=== PATIENT | female | born 1965 | race African-American/Black ===

== ENCOUNTER 2016-07-18 23:09 | Emergency (ER) | payer MEDICAID ==
[~2016-07-18] VITALS: Ht 170.2 cm; Wt 84.0 kg
[~2016-07-18 23:09] MED LIST: AMLODIPINE; ARIP2TAB9; DIPHENHYDRAMINE; DOCUSATE; FURO20TA; HYDR12.518; HYDROCODONE; METOPROLOL; MIRT15TA; OMEPRAZOLE
[2016-07-19 00:55] LABS: CHLORIDE 110 mEq/L (98-107); INDEX HEMOLYSI 1 (1-3); INDEX ICTERIC 1 (1-4); INDEX LIPEMIC 1 (1-3)
[2016-07-19 00:57] LABS: BASOPHILS % 2.4 % (0.0-2.0); DIFFERENTIAL COMMENT 0; EOSINOPHILS % 5.6 % (0.0-5.0); HEMATOCRIT. 32.9 % (36.0-48.0); HEMOGLOBIN. 10.8 g/dL (12.0-16.0); LYMPHOCYTES % 47.2 % (20.0-50.0); MEAN CORPUSCULAR HEMOGLOBIN 33.8 pg (28.0-32.0); MEAN CORPUSCULAR HGB CONC 32.7 g/dL (31.0-37.0); MEAN CORPUSCULAR VOLUME 103.3 fL (81.0-99.0); MONOCYTES % 12.1 % (2.0-8.0); NEUTROPHILS % 32.7 % (40.0-76.0); PLATELET 157 x1000/uL (130-400); RED BLOOD CELL COUNT 3.19 mill/uL (4.2-5.4); RED CELL DISTRIBUTION WIDTH 15.9 % (11.6-14.6); WHITE BLOOD COUNT 5.6 x1000/uL (4.5-11.0)
[2016-07-19 01:09] LABS: ANION GAP 13; CALCIUM 8.1 mg/dL (8.5-10.1); CARBON DIOXIDE 25 mEq/L (21-32); UREA NITROGEN BLOOD 12 mg/dL (7-21); eGFR > 60 mL/min (>60)
[2016-07-19 01:14] LABS: ETHANOL BLOOD 334 mg/dL
[2016-07-19 03:29] VITALS: BP 138/92
== END 2016-07-19 05:44 | disposition home or self-care (01) ==
LOC: ER 23:10
DX: M79.7 Fibromyalgia (principal); M19.90 Unspecified osteoarthritis, unspecified site; F10.120 Alcohol abuse with intoxication, uncomplicated; I10 Essential (primary) hypertension; F17.200 Nicotine dependence, unspecified, uncomplicated; Z79.899 Other long term (current) drug therapy; Y90.8 Blood alcohol level of 240 mg/100 ml or more
CPT/HCPCS: 36415; 80048; 85025; 99284; G0482

== ENCOUNTER 2016-07-26 22:57 | Emergency (ER) | payer MEDICAID ==
[~2016-07-26] VITALS: Ht 167.6 cm; Wt 77.0 kg
[~2016-07-26 22:57] MED LIST changes: +FURO-152; -FURO20TA
[2016-07-27] MEDS ORDERED: KETOROLAC 30MG/ML VIAL IV ONE (01:45)
[2016-07-27 02:44] LABS: DIFFERENTIAL COMMENT 0; HEMATOCRIT. 32.3 % (36.0-48.0); HEMOGLOBIN. 10.6 g/dL (12.0-16.0); MEAN CORPUSCULAR HEMOGLOBIN 33.1 pg (28.0-32.0); MEAN CORPUSCULAR HGB CONC 32.9 g/dL (31.0-37.0); MEAN CORPUSCULAR VOLUME 100.5 fL (81.0-99.0); PLATELET 106 x1000/uL (130-400); RED BLOOD CELL COUNT 3.21 mill/uL (4.2-5.4); RED CELL DISTRIBUTION WIDTH 15.2 % (11.6-14.6); WHITE BLOOD COUNT 6.1 x1000/uL (4.5-11.0)
[2016-07-27] MEDS ORDERED: DICYCLOMINE HCL 20MG TABLET PO SCH (02:45)
[2016-07-27] MEDS ORDERED: ACETAMINOPHEN 325MG TABLET PO ONE (02:45)
[2016-07-27] MEDS ORDERED: FAMOTIDINE 20MG TABLET PO ONE (02:45)
[2016-07-27 02:49] LABS: CHLORIDE 104 mEq/L (98-107); INDEX HEMOLYSI 1 (1-3); INDEX ICTERIC 1 (1-4); INDEX LIPEMIC 1 (1-3)
[2016-07-27 02:58] LABS: ALANINE AMINOTRANSFERASE 59 IU/L (13-61); ALBUMIN 3.2 g/dL (3.4-5.0); ANION GAP 15; CALCIUM 8.4 mg/dL (8.5-10.1); CARBON DIOXIDE 27 mEq/L (21-32); LIPASE 234 IU/L (73-393); UREA NITROGEN BLOOD 12 mg/dL (7-21); eGFR > 60 mL/min (>60)
[2016-07-27 03:19] LABS: ATYPICAL LYMPHOCYTES 3
[2016-07-27 03:20] LABS: PLATELET ESTIMATE SLIGHTLY DECREASED
[2016-07-27 03:58] LABS: GLUCOSE URINE NEGATIVE (NEGATIVE); KETONES URINE NEGATIVE (NEGATIVE); LEUKOCYTE ESTERASE URINE NEGATIVE (NEGATIVE); NITRITE URINE NEGATIVE (NEGATIVE); OCCULT BLOOD URINE NEGATIVE (NEGATIVE); PROTEIN URINE NEGATIVE (NEGATIVE); SPECIFIC GRAVITY URINE 1.006 (1.005-1.030)
[2016-07-27 04:00] LABS: CLARITY URINE SL HAZY (CLEAR); COLOR URINE YELLOW (YELLOW)
[2016-07-27 04:10] LABS: SQUAMOUS EPITHELIAL CELL URINE 1+ /lpf (RARE/1+)
[2016-07-27 04:11] LABS: RBC URINE 0-2 /hpf (0-2)
[2016-07-27 04:12] LABS: BACTERIA URINE 1+
[2016-07-27 07:33] VITALS: BP 141/75
[2016-07-27] MEDS ORDERED: FAMOTIDINE 20MG/2ML VIAL IV SCH (09:00)
[2016-07-27 10:46] LABS: *AMPHETAMINES SCREEN URINE NEGATIVE (NEGATIVE); *BARBITURATES SCREEN URINE NEGATIVE (NEGATIVE); *BENZODIAZEPINES SCREEN URINE NEGATIVE (NEGATIVE); *COCAINE SCREEN URINE NEGATIVE (NEGATIVE); CANNABINOID URINE SCREEN NEGATIVE (NEGATIVE); ECSTASY MDMA SCREEN URINE NEGATIVE (NEGATIVE); METHADONE URINE SCREEN NEGATIVE (NEGATIVE); OPIATES URINE SCREEN NEGATIVE (NEGATIVE); PHENCYCLIDINE URINE SCREEN NEGATIVE (NEGATIVE)
== END 2016-07-27 08:03 | disposition home or self-care (01) ==
LOC: ER 23:08
DX: R10.9 Unspecified abdominal pain (principal); E87.6 Hypokalemia; I10 Essential (primary) hypertension; M19.90 Unspecified osteoarthritis, unspecified site; K76.0 Fatty (change of) liver, not elsewhere classified; D64.9 Anemia, unspecified; D69.6 Thrombocytopenia, unspecified; Z90.49 Acquired absence of other specified parts of digestive tract
CPT/HCPCS: 36415; 76705; 80053; 80305; 81001; 81025; 83690; 85007; 85027; 99285

== ENCOUNTER 2016-08-02 01:05 | Emergency (ER) | payer MEDICAID ==
[~2016-08-02] VITALS: Ht 162.6 cm; Wt 83.0 kg
[2016-08-02 06:14] LABS: BASOPHILS % 1.2 % (0.0-2.0); DIFFERENTIAL COMMENT 0; EOSINOPHILS % 2.9 % (0.0-5.0); HEMATOCRIT. 32.4 % (36.0-48.0); HEMOGLOBIN. 10.8 g/dL (12.0-16.0); LYMPHOCYTES % 52.2 % (20.0-50.0); MEAN CORPUSCULAR HEMOGLOBIN 33.6 pg (28.0-32.0); MEAN CORPUSCULAR HGB CONC 33.2 g/dL (31.0-37.0); MEAN CORPUSCULAR VOLUME 101.2 fL (81.0-99.0); MEAN PLATELET VOLUME 8.2 fl (7.4-10.4); MONOCYTES % 13.7 % (2.0-8.0); PLATELET 142 x1000/uL (130-400); RED CELL DISTRIBUTION WIDTH 15.2 % (11.6-14.6); WHITE BLOOD COUNT 5.7 x1000/uL (4.5-11.0)
[2016-08-02 06:17] LABS: CHLORIDE 108 mEq/L (98-107); INDEX HEMOLYSI 1 (1-3); INDEX ICTERIC 1 (1-4); INDEX LIPEMIC 1 (1-3)
[2016-08-02 06:26] LABS: ALANINE AMINOTRANSFERASE 62 IU/L (13-61); ALBUMIN 3.3 g/dL (3.4-5.0); ANION GAP 14; CALCIUM 8.2 mg/dL (8.5-10.1); CARBON DIOXIDE 25 mEq/L (21-32); LIPASE 231 IU/L (73-393); UREA NITROGEN BLOOD 9 mg/dL (7-21); eGFR > 60 mL/min (>60)
[2016-08-02 06:27] LABS: HCG SCREEN NEGATIVE
[2016-08-02 07:11] LABS: CLARITY URINE TURBID (CLEAR); COLOR URINE YELLOW (YELLOW); GLUCOSE URINE NEGATIVE (NEGATIVE); KETONES URINE NEGATIVE (NEGATIVE); LEUKOCYTE ESTERASE URINE NEGATIVE (NEGATIVE); NITRITE URINE NEGATIVE (NEGATIVE); OCCULT BLOOD URINE NEGATIVE (NEGATIVE); PH URINE 7.5 (4.5-8.0); PROTEIN URINE NEGATIVE (NEGATIVE); SPECIFIC GRAVITY URINE 1.007 (1.005-1.030); UROBILINOGEN URINE 0.2 E.U./dL (0.2-1.0)
[2016-08-02 07:39] VITALS: BP 138/74
[2016-08-02 07:42] LABS: SQUAMOUS EPITHELIAL CELL URINE 1+ /lpf (RARE/1+)
[2016-08-02 07:43] LABS: BACTERIA URINE 1+
[2016-08-02 07:44] LABS: RBC URINE NONE SEEN /hpf (0-2); WBC URINE 0-2 /hpf (0-2)
[2016-08-02] MEDS ORDERED: MAGNESIUM/ALUMINUM HYDROXIDE/SIMETHICONE 30ML UDC PO NR (08:15)
[2016-08-02] MEDS ORDERED: POTASSIUM CHLORIDE 20MEQ TABLET SR PO NR (08:15)
[2016-08-02] MEDS ORDERED: FAMOTIDINE 20MG TABLET PO NR (08:15)
== END 2016-08-02 08:37 | disposition home or self-care (01) ==
LOC: ER 01:22
DX: K29.20 Alcoholic gastritis without bleeding (principal); I10 Essential (primary) hypertension; F10.10 Alcohol abuse, uncomplicated; M19.90 Unspecified osteoarthritis, unspecified site; F17.210 Nicotine dependence, cigarettes, uncomplicated; Y90.9 Presence of alcohol in blood, level not specified
CPT/HCPCS: 36415; 80053; 81001; 83690; 84703; 85025; 99284

== ENCOUNTER 2016-08-03 21:19 | Emergency (ER) | payer MEDICAID ==
[~2016-08-03] VITALS: Ht 167.6 cm; Wt 81.0 kg
[2016-08-03] MEDS ORDERED: IBUPROFEN 600MG TABLET PO ONE (23:30)
[2016-08-04 00:04] VITALS: BP 128/66
== END 2016-08-04 00:16 | disposition home or self-care (01) ==
LOC: ER 21:20
DX: K08.89 Other specified disorders of teeth and supporting structures (principal); I10 Essential (primary) hypertension; F17.210 Nicotine dependence, cigarettes, uncomplicated; Z90.49 Acquired absence of other specified parts of digestive tract
CPT/HCPCS: 99283

== ENCOUNTER 2016-08-04 05:09 | Emergency (ER) | payer MEDICAID | END 2016-08-04 05:32 | disposition left against medical advice (07) | LOC: ER 05:10 | DX: R52 Pain, unspecified (principal); Z53.21 Procedure and treatment not carried out due to patient leaving prior to being seen by health care provider ==

== ENCOUNTER 2016-09-12 22:54 | Emergency (ER) | payer MEDICAID ==
[~2016-09-12] VITALS: Ht 165.1 cm; Wt 91.0 kg
[2016-09-13 01:48] LABS: CLARITY URINE CLEAR (CLEAR); COLOR URINE YELLOW (YELLOW); GLUCOSE URINE NEGATIVE (NEGATIVE); KETONES URINE NEGATIVE (NEGATIVE); LEUKOCYTE ESTERASE URINE NEGATIVE (NEGATIVE); NITRITE URINE NEGATIVE (NEGATIVE); OCCULT BLOOD URINE NEGATIVE (NEGATIVE); PH URINE 7.5 (4.5-8.0); PROTEIN URINE NEGATIVE (NEGATIVE); SPECIFIC GRAVITY URINE 1.014 (1.005-1.030); UROBILINOGEN URINE 0.2 E.U./dL (0.2-1.0)
[2016-09-13 01:50] LABS: BASOPHILS % 0.8 % (0.0-2.0); EOSINOPHILS % 2.4 % (0.0-5.0); HEMATOCRIT. 34.6 % (36.0-48.0); HEMOGLOBIN. 11.5 g/dL (12.0-16.0); MEAN CORPUSCULAR HEMOGLOBIN 33.1 pg (28.0-32.0); MEAN CORPUSCULAR HGB CONC 33.2 g/dL (31.0-37.0); MEAN CORPUSCULAR VOLUME 99.9 fL (81.0-99.0); MEAN PLATELET VOLUME 8.8 fl (7.4-10.4); MONOCYTES % 11.8 % (2.0-8.0); PLATELET 109 x1000/uL (130-400); RED BLOOD CELL COUNT 3.47 mill/uL (4.2-5.4); RED CELL DISTRIBUTION WIDTH 16.9 % (11.6-14.6); WHITE BLOOD COUNT 6.5 x1000/uL (4.5-11.0)
[2016-09-13 01:56] LABS: CHLORIDE 102 mEq/L (98-107); INDEX HEMOLYSI 1 (1-3); INDEX ICTERIC 1 (1-4); INDEX LIPEMIC 1 (1-3)
[2016-09-13 01:59] LABS: *AMPHETAMINES SCREEN URINE NEGATIVE (NEGATIVE); *BARBITURATES SCREEN URINE NEGATIVE (NEGATIVE); *BENZODIAZEPINES SCREEN URINE NEGATIVE (NEGATIVE); *COCAINE SCREEN URINE NEGATIVE (NEGATIVE); CANNABINOID URINE SCREEN NEGATIVE (NEGATIVE); ECSTASY MDMA SCREEN URINE NEGATIVE (NEGATIVE); METHADONE URINE SCREEN NEGATIVE (NEGATIVE); OPIATES URINE SCREEN NEGATIVE (NEGATIVE); PHENCYCLIDINE URINE SCREEN NEGATIVE (NEGATIVE)
[2016-09-13 02:05] LABS: ALANINE AMINOTRANSFERASE 48 IU/L (13-61); ALBUMIN 3.7 g/dL (3.4-5.0); ANION GAP 12; CALCIUM 8.6 mg/dL (8.5-10.1); CARBON DIOXIDE 29 mEq/L (21-32); ETHANOL BLOOD 209 mg/dL; UREA NITROGEN BLOOD 8 mg/dL (7-21); eGFR > 60 mL/min (>60)
[2016-09-13] MEDS ORDERED: POTASSIUM CHLORIDE 20MEQ TABLET SR PO ONE (06:45)
[2016-09-13 09:30] VITALS: BP 125/83
== END 2016-09-13 10:03 | disposition home or self-care (01) ==
LOC: ER 23:11
DX: F10.129 Alcohol abuse with intoxication, unspecified (principal); G89.29 Other chronic pain; R10.9 Unspecified abdominal pain; I10 Essential (primary) hypertension; Z90.49 Acquired absence of other specified parts of digestive tract
CPT/HCPCS: 36415; 80053; 80305; 81003; 85025; 99284; G0482; Z7610

== ENCOUNTER 2016-10-18 22:37 | Emergency (ER) | payer MEDICAID ==
[~2016-10-18] VITALS: Ht 167.6 cm; Wt 100.0 kg
[~2016-10-18 22:37] MED LIST changes: +ARIP2TAB3; -ARIP2TAB9
[2016-10-18 22:39] VITALS: BP 153/72
== END 2016-10-19 02:30 | disposition left against medical advice (07) ==
LOC: ER 22:39
DX: Z53.21 Procedure and treatment not carried out due to patient leaving prior to being seen by health care provider (principal)

== ENCOUNTER 2016-10-19 06:01 | Emergency (ER) | payer MEDICAID ==
[~2016-10-19] VITALS: Ht 167.6 cm; Wt 100.0 kg
[2016-10-19 06:56] LABS: CLARITY URINE CLOUDY (CLEAR); COLOR URINE YELLOW (YELLOW); GLUCOSE URINE NEGATIVE (NEGATIVE); KETONES URINE NEGATIVE (NEGATIVE); LEUKOCYTE ESTERASE URINE TRACE (NEGATIVE); NITRITE URINE POSITIVE (NEGATIVE); OCCULT BLOOD URINE NEGATIVE (NEGATIVE); PROTEIN URINE NEGATIVE (NEGATIVE); SPECIFIC GRAVITY URINE 1.011 (1.005-1.030)
[2016-10-19 08:30] VITALS: BP 136/80
== END 2016-10-19 09:38 | disposition home or self-care (01) ==
LOC: ER 06:45
DX: N39.0 Urinary tract infection, site not specified (principal); A63.0 Anogenital (venereal) warts; I10 Essential (primary) hypertension; M79.7 Fibromyalgia; Z79.899 Other long term (current) drug therapy
CPT/HCPCS: 81001; 99283

== ENCOUNTER 2016-10-28 23:40 | Emergency (ER) | payer MEDICAID ==
[~2016-10-28] VITALS: Ht 162.6 cm; Wt 68.0 kg
[2016-10-28 23:46] VITALS: BP 152/86
== END 2016-10-29 05:00 | disposition left against medical advice (07) ==
LOC: ER 23:44
DX: M79.606 Pain in leg, unspecified (principal); Z53.21 Procedure and treatment not carried out due to patient leaving prior to being seen by health care provider

== ENCOUNTER 2016-10-31 23:57 | Emergency (ER) | payer MEDICAID ==
[~2016-10-31] VITALS: Ht 175.3 cm; Wt 77.0 kg
[2016-11-01] MEDS ORDERED: IBUPROFEN 600MG TABLET PO ONE (07:30)
[2016-11-01 08:12] LABS: CLARITY URINE CLEAR (CLEAR); COLOR URINE YELLOW (YELLOW); GLUCOSE URINE NEGATIVE (NEGATIVE); KETONES URINE NEGATIVE (NEGATIVE); LEUKOCYTE ESTERASE URINE TRACE (NEGATIVE); NITRITE URINE NEGATIVE (NEGATIVE); OCCULT BLOOD URINE 1+ (NEGATIVE); PH URINE 7.5 (4.5-8.0); PROTEIN URINE NEGATIVE (NEGATIVE); SPECIFIC GRAVITY URINE 1.008 (1.005-1.030); UROBILINOGEN URINE 0.2 E.U./dL (0.2-1.0)
[2016-11-01 08:51] VITALS: BP 165/105
== END 2016-11-01 09:52 | disposition home or self-care (01) ==
LOC: ER 23:57
DX: M54.5 Low back pain (principal); R60.9 Edema, unspecified; J45.909 Unspecified asthma, uncomplicated; I10 Essential (primary) hypertension; F19.10 Other psychoactive substance abuse, uncomplicated; F17.200 Nicotine dependence, unspecified, uncomplicated; E11.9 Type 2 diabetes mellitus without complications; Z86.73 Personal history of transient ischemic attack (TIA), and cerebral infarction without residual deficits; Z90.49 Acquired absence of other specified parts of digestive tract
CPT/HCPCS: 81001; 93970; 99285

== ENCOUNTER 2016-11-04 00:06 | Emergency (ER) | payer MEDICAID ==
[~2016-11-04] VITALS: Ht 170.2 cm; Wt 68.0 kg
[2016-11-04 00:15] VITALS: BP 148/80
== END 2016-11-04 07:56 | disposition left against medical advice (07) ==
LOC: ER 00:27
DX: Z53.21 Procedure and treatment not carried out due to patient leaving prior to being seen by health care provider (principal)

== ENCOUNTER 2016-11-20 01:12 | Emergency (ER) | payer MEDICAID ==
[~2016-11-20] VITALS: Ht 167.6 cm; Wt 73.0 kg
[2016-11-20 05:55] VITALS: BP 126/69
== END 2016-11-20 06:46 | disposition home or self-care (01) ==
LOC: ER 01:12 → CANBEDREQ 05:37 → ER 06:46
DX: M54.5 Low back pain (principal); M79.604 Pain in right leg; M79.605 Pain in left leg; F17.200 Nicotine dependence, unspecified, uncomplicated; I10 Essential (primary) hypertension; M19.90 Unspecified osteoarthritis, unspecified site
CPT/HCPCS: 99283

== ENCOUNTER 2016-11-21 00:03 | Emergency (ER) | payer MEDICAID, OTHER ==
[~2016-11-21] VITALS: Ht 167.6 cm; Wt 73.5 kg
[2016-11-21 05:03] VITALS: BP 165/93
[2016-11-21] MEDS ORDERED: ACETAMINOPHEN 325MG TABLET PO ONE (06:30)
== END 2016-11-21 07:22 | disposition home or self-care (01) ==
LOC: ER 00:05
DX: M79.605 Pain in left leg (principal); M79.604 Pain in right leg; R10.9 Unspecified abdominal pain; M79.7 Fibromyalgia; I10 Essential (primary) hypertension; E11.9 Type 2 diabetes mellitus without complications; Z86.73 Personal history of transient ischemic attack (TIA), and cerebral infarction without residual deficits; Z90.49 Acquired absence of other specified parts of digestive tract
CPT/HCPCS: 99283; Z7610

== ENCOUNTER 2016-11-24 23:33 | Emergency (ER) | payer MEDICAID, OTHER ==
[~2016-11-24] VITALS: Ht 167.6 cm; Wt 73.0 kg
[2016-11-25] MEDS ORDERED: IBUPROFEN 800MG TABLET PO ONE (03:45)
[2016-11-25 04:31] VITALS: BP 135/85
== END 2016-11-25 04:51 | disposition home or self-care (01) ==
LOC: ER 11-25 03:42
DX: M54.5 Low back pain (principal); F31.9 Bipolar disorder, unspecified; I10 Essential (primary) hypertension; F17.200 Nicotine dependence, unspecified, uncomplicated; I25.2 Old myocardial infarction; Z90.49 Acquired absence of other specified parts of digestive tract
CPT/HCPCS: 99283

== ENCOUNTER 2016-11-29 22:33 | Emergency (ER) | payer OTHER ==
[~2016-11-29] VITALS: Ht 165.1 cm; Wt 73.0 kg
[2016-11-29 22:36] VITALS: BP 144/90
== END 2016-11-30 01:27 | disposition left against medical advice (07) ==
LOC: ER 22:33
DX: Z53.21 Procedure and treatment not carried out due to patient leaving prior to being seen by health care provider (principal)

== ENCOUNTER 2016-11-30 03:14 | Emergency (ER) | payer OTHER ==
[~2016-11-30] VITALS: Ht 165.1 cm; Wt 73.0 kg
[2016-11-30] MEDS ORDERED: KETOROLAC 60MG/2ML VIAL IM ONE (07:15)
[2016-11-30 07:31] VITALS: BP 106/64
== END 2016-11-30 11:09 | disposition left against medical advice (07) ==
LOC: ER 03:14
DX: M79.605 Pain in left leg (principal); M79.604 Pain in right leg; G89.29 Other chronic pain; R03.0 Elevated blood-pressure reading, without diagnosis of hypertension; Z79.899 Other long term (current) drug therapy; M54.9 Dorsalgia, unspecified
CPT/HCPCS: 96372; 99283; J1885

== ENCOUNTER 2016-12-10 23:41 | Emergency (ER) | payer OTHER ==
[~2016-12-10] VITALS: Ht 167.6 cm; Wt 86.0 kg
[2016-12-11 03:17] LABS: BASOPHILS % 0.9 % (0.0-2.0); EOSINOPHILS % 3.1 % (0.0-5.0); HEMATOCRIT. 30.6 % (36.0-48.0); LYMPHOCYTES % 38.5 % (20.0-50.0); MEAN CORPUSCULAR HEMOGLOBIN 33.4 pg (28.0-32.0); MONOCYTES % 11.9 % (2.0-8.0); NEUTROPHILS % 45.6 % (40.0-76.0); PLATELET 121 x1000/uL (130-400); RED CELL DISTRIBUTION WIDTH 16.9 % (11.6-14.6)
[2016-12-11 03:29] LABS: CARBON DIOXIDE 25 mEq/L (21-32); CHLORIDE 106 mEq/L (98-107); ETHANOL BLOOD 167 mg/dL
[2016-12-11] MEDS ORDERED: POTASSIUM CHLORIDE 20MEQ/PACKET PO ONE (04:00)
[2016-12-11] MEDS ORDERED: SODIUM CHLORIDE 0.9% 500 ML IV ONE (04:12)
[2016-12-11] MEDS ORDERED: POTASSIUM CHLORIDE 20MEQ/PACKET PO SCH (04:15)
[2016-12-11 04:48] LABS: CLARITY URINE TURBID (CLEAR); COLOR URINE YELLOW (YELLOW); GLUCOSE URINE NEGATIVE (NEGATIVE); KETONES URINE NEGATIVE (NEGATIVE); LEUKOCYTE ESTERASE URINE TRACE (NEGATIVE); NITRITE URINE NEGATIVE (NEGATIVE); OCCULT BLOOD URINE 3+ (NEGATIVE); PH URINE 7.5 (4.5-8.0); PROTEIN URINE NEGATIVE (NEGATIVE); SPECIFIC GRAVITY URINE 1.008 (1.005-1.030)
[2016-12-11 05:07] LABS: *AMPHETAMINES SCREEN URINE NEGATIVE (NEGATIVE); *BARBITURATES SCREEN URINE NEGATIVE (NEGATIVE); *BENZODIAZEPINES SCREEN URINE NEGATIVE (NEGATIVE); *COCAINE SCREEN URINE NEGATIVE (NEGATIVE); CANNABINOID URINE SCREEN NEGATIVE (NEGATIVE); METHADONE URINE SCREEN NEGATIVE (NEGATIVE); OPIATES URINE SCREEN NEGATIVE (NEGATIVE); PHENCYCLIDINE URINE SCREEN NEGATIVE (NEGATIVE)
[2016-12-11 08:29] VITALS: BP 161/87
== END 2016-12-11 11:37 | disposition home or self-care (01) ==
LOC: ER 23:41
DX: N39.0 Urinary tract infection, site not specified (principal); F10.129 Alcohol abuse with intoxication, unspecified; F31.9 Bipolar disorder, unspecified; I10 Essential (primary) hypertension; Y90.8 Blood alcohol level of 240 mg/100 ml or more
CPT/HCPCS: 36415; 80053; 80305; 81001; 83690; 83735; 85025; 96360; 96361; 99285; G0482; J7040; Z7610

== ENCOUNTER 2016-12-20 22:23 | Emergency (ER) | payer OTHER ==
[~2016-12-20] VITALS: Ht 167.6 cm; Wt 80.0 kg
[2016-12-21] MEDS ORDERED: KETOROLAC 60MG/2ML VIAL IM ONE (07:45)
[2016-12-21 08:59] VITALS: BP 130/60
== END 2016-12-21 09:07 | disposition home or self-care (01) ==
LOC: ER 22:23
DX: M54.9 Dorsalgia, unspecified (principal); M79.606 Pain in leg, unspecified; M19.90 Unspecified osteoarthritis, unspecified site; I10 Essential (primary) hypertension; M79.7 Fibromyalgia; F17.210 Nicotine dependence, cigarettes, uncomplicated; Z90.49 Acquired absence of other specified parts of digestive tract
CPT/HCPCS: 96372; 99283; J1885; Z7610

== ENCOUNTER 2017-01-26 23:14 | Emergency (ER) | payer MEDICAID, OTHER ==
[~2017-01-26] VITALS: Ht 165.1 cm; Wt 75.0 kg
[2017-01-27] MEDS ORDERED: IBUPROFEN 600MG TABLET PO ONE (06:30)
[2017-01-27 06:36] VITALS: BP 123/75
== END 2017-01-27 07:03 | disposition home or self-care (01) ==
LOC: ER 01-27 02:50
DX: G89.29 Other chronic pain (principal); M54.5 Low back pain; I10 Essential (primary) hypertension; F17.200 Nicotine dependence, unspecified, uncomplicated
CPT/HCPCS: 81025; 99283

== ENCOUNTER 2017-05-03 20:44 | Emergency (ER) | payer MEDICAID ==
[~2017-05-03] VITALS: Ht 162.6 cm; Wt 77.0 kg
[2017-05-04 05:41] VITALS: BP 150/80
== END 2017-05-04 07:56 | disposition home or self-care (01) ==
LOC: ER 20:58
DX: F10.10 Alcohol abuse, uncomplicated (principal); I10 Essential (primary) hypertension; F17.210 Nicotine dependence, cigarettes, uncomplicated; Y90.9 Presence of alcohol in blood, level not specified; Z90.49 Acquired absence of other specified parts of digestive tract; Z20.6 Contact with and (suspected) exposure to human immunodeficiency virus [HIV]; Z87.19 Personal history of other diseases of the digestive system
CPT/HCPCS: 99283; Z7610

== ENCOUNTER 2017-05-18 21:29 | Emergency (ER) | payer MEDICAID ==
[~2017-05-18] VITALS: Ht 170.2 cm; Wt 75.0 kg
[2017-05-18 21:48] VITALS: BP 143/85
== END 2017-05-19 07:45 | disposition left against medical advice (07) ==
LOC: ER 21:29
DX: M54.9 Dorsalgia, unspecified (principal); Z53.21 Procedure and treatment not carried out due to patient leaving prior to being seen by health care provider

== ENCOUNTER 2017-10-21 23:45 | Emergency (ER) | payer MEDICAID ==
[~2017-10-21] VITALS: Ht 167.6 cm; Wt 81.0 kg
[2017-10-22 06:42] LABS: CLARITY URINE TURBID (CLEAR); COLOR URINE YELLOW (YELLOW); KETONES URINE NEGATIVE (NEGATIVE); LEUKOCYTE ESTERASE URINE 3+ (NEGATIVE); NITRITE URINE NEGATIVE (NEGATIVE); OCCULT BLOOD URINE NEGATIVE (NEGATIVE); PROTEIN URINE TRACE (NEGATIVE); SPECIFIC GRAVITY URINE 1.011 (1.005-1.030)
[2017-10-22 07:15] LABS: CHLORIDE 110 mEq/L (98-107)
[2017-10-22 07:16] LABS: INR 1.2; PROTHROMBIN TIME 12.2 sec (9.4-11.6)
[2017-10-22 07:18] LABS: BASOPHILS % 0.8 % (0.0-2.0); EOSINOPHILS % 2.8 % (0.0-5.0); HEMOGLOBIN. 8.6 g/dL (12.0-16.0); LYMPHOCYTES % 37.2 % (20.0-50.0); MEAN CORPUSCULAR HEMOGLOBIN 29.5 pg (28.0-32.0); MEAN CORPUSCULAR VOLUME 89.1 fL (81.0-99.0); MEAN PLATELET VOLUME 8.2 fl (7.4-10.4); MONOCYTES % 11.2 % (2.0-8.0); PLATELET 215 x1000/uL (130-400); RED BLOOD CELL COUNT 2.92 mill/uL (4.2-5.4); RED CELL DISTRIBUTION WIDTH 22.6 % (11.6-14.6)
[2017-10-22 07:19] LABS: ETHANOL BLOOD 159 mg/dL
[2017-10-22 07:56] LABS: PLATELET ESTIMATE NORMAL
[2017-10-22 08:07] VITALS: BP 106/73
[2017-10-22] MEDS ORDERED: CEFTRIAXONE SODIUM 250 MG/VIAL IM ONE (08:30)
[2017-10-22] MEDS ORDERED: FOLIC ACID 1 MG, THIAMINE HCL 100 MG, MVI, ADULT NO.1 10 ML in DEXTROSE 5% WATER 1,000 ML IV ONE ×4 (08:30)
[2017-10-22] MEDS ORDERED: POTASSIUM CHLORIDE 20MEQ TABLET SR PO ONE (08:30)
[2017-10-22] MEDS ORDERED: MAGNESIUM 1 G PREMIX 100 ML IV ONE (09:00)
== END 2017-10-22 09:00 | disposition left against medical advice (07) ==
LOC: ER 23:45
DX: E87.6 Hypokalemia (principal); D64.9 Anemia, unspecified; N39.0 Urinary tract infection, site not specified; I10 Essential (primary) hypertension; F17.200 Nicotine dependence, unspecified, uncomplicated; K85.90 Acute pancreatitis without necrosis or infection, unspecified; F10.129 Alcohol abuse with intoxication, unspecified; Y90.6 Blood alcohol level of 120-199 mg/100 ml; Z90.49 Acquired absence of other specified parts of digestive tract
CPT/HCPCS: 36415; 80053; 81003; 83690; 83735; 85025; 85610; 87077; 87086; 87186; 99284; G0482; J3411; J3490; J7070; Z7610

== ENCOUNTER 2018-04-12 22:45 | Emergency (ER) | payer MEDICAID ==
[~2018-04-12] VITALS: Ht 172.7 cm; Wt 90.0 kg
[2018-04-13] MEDS ORDERED: ONDANSETRON 4MG ODT PO ONE (01:30)
[2018-04-13 03:08] LABS: CHLORIDE 110 mEq/L (98-107)
[2018-04-13 03:13] LABS: ETHANOL BLOOD 257 mg/dL
[2018-04-13] MEDS ORDERED: SODIUM CHLORIDE 0.9% 1,000 ML IV ONE (03:21)
[2018-04-13] MEDS ORDERED: POTASSIUM CHLORIDE 20MEQ TABLET SR PO ONE (03:30)
[2018-04-13 04:33] LABS: HEMATOCRIT. 33.9 % (36.0-48.0); HEMOGLOBIN. 10.9 g/dL (12.0-16.0); MEAN CORPUSCULAR VOLUME 92.9 fL (81.0-99.0); MEAN PLATELET VOLUME 8.8 fl (7.4-10.4); PLATELET 130 x1000/uL (130-400); RED BLOOD CELL COUNT 3.65 mill/uL (4.2-5.4)
[2018-04-13 05:29] LABS: PLATELET ESTIMATE NORMAL
[2018-04-13] MEDS ORDERED: IBUPROFEN 600MG TABLET PO PRN (06:00)
[2018-04-13] MEDS ORDERED: KCL 20MEQ/100ML PREMIX 100 ML IV ONE (06:15)
[2018-04-13 08:00] LABS: CLARITY URINE CLOUDY (CLEAR); COLOR URINE YELLOW (YELLOW); KETONES URINE NEGATIVE (NEGATIVE); LEUKOCYTE ESTERASE URINE 2+ (NEGATIVE); NITRITE URINE NEGATIVE (NEGATIVE); OCCULT BLOOD URINE 1+ (NEGATIVE); PROTEIN URINE NEGATIVE (NEGATIVE); SPECIFIC GRAVITY URINE 1.012 (1.005-1.030)
[2018-04-13 08:07] LABS: *AMPHETAMINES SCREEN URINE NEGATIVE (NEGATIVE); *BARBITURATES SCREEN URINE NEGATIVE (NEGATIVE); *BENZODIAZEPINES SCREEN URINE NEGATIVE (NEGATIVE)
[2018-04-13 08:08] LABS: *COCAINE SCREEN URINE NEGATIVE (NEGATIVE); CANNABINOID URINE SCREEN NEGATIVE (NEGATIVE); METHADONE URINE SCREEN NEGATIVE (NEGATIVE); OPIATES URINE SCREEN NEGATIVE (NEGATIVE); PHENCYCLIDINE URINE SCREEN NEGATIVE (NEGATIVE)
[2018-04-13] MEDS ORDERED: KCL 20MEQ/100ML PREMIX 100 ML IV SCH (09:15)
[2018-04-13 09:35] VITALS: BP 147/87
== END 2018-04-13 09:42 | disposition left against medical advice (07) ==
LOC: ER 22:45 → EDBEDREQ 04-13 06:02 → ER 04-13 09:42 → CANBEDREQ 04-13 10:26
DX: E87.6 Hypokalemia (principal); E83.51 Hypocalcemia; R18.8 Other ascites; R10.84 Generalized abdominal pain; R11.10 Vomiting, unspecified; F10.20 Alcohol dependence, uncomplicated; I10 Essential (primary) hypertension; M79.7 Fibromyalgia; R19.7 Diarrhea, unspecified; Z79.899 Other long term (current) drug therapy; Y90.8 Blood alcohol level of 240 mg/100 ml or more
CPT/HCPCS: 36415; 71045; 74176; 80053; 80305; 81003; 83690; 83735; 85025; 93005; 96360; 99284; G0482; J3480; J7030; Q0162

== ENCOUNTER 2018-05-04 22:36 | Emergency (ER) | payer MEDICAID ==
[~2018-05-04] VITALS: Ht 162.6 cm; Wt 73.0 kg
[2018-05-04 22:43] VITALS: BP 151/86
== END 2018-05-05 01:10 | disposition left against medical advice (07) ==
LOC: ER 05-05 00:25
DX: Z53.21 Procedure and treatment not carried out due to patient leaving prior to being seen by health care provider (principal); J45.909 Unspecified asthma, uncomplicated; I10 Essential (primary) hypertension; I25.10 Atherosclerotic heart disease of native coronary artery without angina pectoris; F17.200 Nicotine dependence, unspecified, uncomplicated

== ENCOUNTER 2018-05-25 22:45 | Emergency (ER) | payer MEDICAID ==
[~2018-05-25] VITALS: Ht 167.6 cm; Wt 87.0 kg
[2018-05-26] MEDS ORDERED: KETOROLAC 60MG/2ML VIAL IM ONE (00:30)
[2018-05-26 02:33] VITALS: BP 108/62
== END 2018-05-26 02:38 | disposition home or self-care (01) ==
LOC: ER 22:45
DX: G89.29 Other chronic pain (principal); M54.5 Low back pain; J45.909 Unspecified asthma, uncomplicated; I25.10 Atherosclerotic heart disease of native coronary artery without angina pectoris; E11.9 Type 2 diabetes mellitus without complications; I10 Essential (primary) hypertension; F45.42 Pain disorder with related psychological factors; F17.200 Nicotine dependence, unspecified, uncomplicated; Z86.73 Personal history of transient ischemic attack (TIA), and cerebral infarction without residual deficits
CPT/HCPCS: 96372; 99283; J1885

== ENCOUNTER 2018-07-03 21:27 | Emergency (ER) | payer MEDICAID ==
[~2018-07-03] VITALS: Ht 167.6 cm; Wt 82.0 kg
[2018-07-03 21:30] VITALS: BP 149/86
== END 2018-07-04 02:58 | disposition left against medical advice (07) ==
LOC: ER 21:27
DX: Z53.21 Procedure and treatment not carried out due to patient leaving prior to being seen by health care provider (principal)